=== PATIENT | male | born 1965 | race African-American/Black ===

== ENCOUNTER 2017-02-04 11:05 | Emergency (ER) | payer OTHER ==
[2017-02-04 11:13] VITALS: BP 149/90; PULSE 94; TEMP 98.4; BMI 26.4
--- NOTE | 2017-02-04 11:48 | PDOC ---
History of Present Illness - General Chief Complaint: Hematuria Stated Complaint: BLOOD IN URINE Time Seen by Provider: 02/04/17 11:25 History Source: Patient - History of Present Illness Timing/Duration: reports: constant Past History - Past Medical History Allergies/Adverse Reactions: Allergies Allergy/AdvReac Type Severity Reaction Status Date / Time No Known Allergies Allergy Verified 02/04/17 11:12 Home Medications: Ambulatory Orders NK [No Known Home Medication] 07/30/14 Other medical history: denies - Surgical History Appendectomy: Yes - Suicide/Smoking/Psychosocial Hx Smoking History: Never smoked Have you smoked in the past 12 months: No Information on smoking cessation initiated: No Hx Alcohol Use: No Drug/Substance Use Hx: Yes (cocaine) Substance Use Type: Cocaine Review of Systems - Review of Systems Constitutional: No: Chills, Fever ABD/GI: No: Nausea, Vomiting, Abdominal cramping : Yes: Hematuria. No: Dysuria, Frequency, Flank Pain, Testicular Mass, Testicular Swelling, Testicular Pain Neurological: No: Dizziness *Physical Exam - Vital Signs Last Vital Signs Temp Pulse Resp BP Pulse Ox 98.4 F 94 H 20 149/90 98 02/04/17 11:07 02/04/17 11:07 02/04/17 11:07 02/04/17 11:07 02/04/17 11:07 - Physical Exam General Appearance: Yes: Appropriately Dressed. No: Apparent Distress HEENT: positive: Normal Voice Neck: positive: Supple Respiratory/Chest: negative: Respiratory Distress Gastrointestinal/Abdominal: positive: Soft. negative: Tender Musculoskeletal: negative: CVA Tenderness Integumentary: positive: Dry, Warm Neurologic: positive: Fully Oriented, Alert, Normal Mood/Affect ED Treatment Course - LABORATORY CBC & Chemistry Diagram: 02/04/17 11:55 02/04/17 11:55 Medical Decision Making - Medical Decision Making 02/04/17 11:43 51 yo M, denies any pmhx, p/w gross hematuria since yesterday. Denies dysuria, penile discharge, testicular pain/swelling, abd/flank pain, n/v/f/c. States he started using an over the counter "testosterone booster" for the first time 1 week ago. Saw his PMD for routine visit 3 days ago and told "my prostate numbers are up" and now scheduled to see in 1 week. No unexplainable weight loss or sig fmhx. Non-smoker See exam Painless hematuria x 2 days Started new OTC neugenix testosterone booster 1 week ago w/ new elevation in PSA level in PMD's office 3 days ago No dysuria Non-smoker Not on blood thinners No h/o stone Stable w/ unremarkable exam in ED R/o uti, less likely stone, possible SE of new OTC testosterone booster -If ua/labs unremarkable, will dc w/ f/u for further eval 02/04/17 12:34 Labs unremarkable. +bld on ua, no nit w/ wbc of 10. No LE reported. Ucx sent. Will not start on antibiotics as not convinced this is an infection. Strongly suspect that this could be a side effect of [id number] testosterone booster that patient recently started on his own. Has follow-up with urology in several days for further evaluation. Patient currently stable for discharge 02/04/17 12:36 *DC/Admit/Observation/Transfer Diagnosis at time of Disposition: Gross hematuria - Discharge Dispostion Condition at time of disposition: Good - Patient Instructions Printed Discharge Instructions: DI for Hematuria Additional Instructions: Your labs were normal and there were no signs of infection in your urine. The cause of your symptoms could possibly be due to new testosterone booster you are taking. It is advisable that you stop meds as is not FDA approved. Please follow-up with your urologist for further evaluation to rule out any other etiologies. Return to ER for worsening of symptoms
[2017-02-04 12:06] LABS: BASOPHIL 1.5 % (0-2.0); MCH 29.9 pg (25.7-33.7); MCHC 33.4 g/dl (32.0-35.9); MEAN CELL VOLUME 89.4 fl (80-96); MEAN PLT VOLUME 8.2 fl (7.5-11.1); NEUTROPHILS 49.3 % (42.8-82.8); PLATELET COUNT 232 K/MM3 (134-434); RDW 15.1 % (11.9-15.9); WHITE BLOOD COUNT 6.5 K/mm3 (4.0-10.0)
[2017-02-04 12:12] LABS: PH,URINE 5.5 (5.0-8.0); URINE APPEARANCE CLOUDY; URINE BILIRUBIN NEGATIVE (NEGATIVE); URINE BLOOD 3+ (NEGATIVE); URINE COLOR RED; URINE GLUCOSE (UA) NEGATIVE (NEGATIVE); URINE KETONE NEGATIVE (NEGATIVE); URINE LEUK ESTERASE NEGATIVE (NEGATIVE); URINE NITRITE NEGATIVE (NEGATIVE); URINE UROBILINOGEN 0.2 mg/dL (0.2-1.0)
[2017-02-04 12:14] LABS: URINE PROTEIN 1+ (NEGATIVE)
[2017-02-04 12:27] LABS: URINE RBC 5968 /hpf (0-3); URINE WBC 10 /hpf (3-5)
[2017-02-04 12:31] LABS: ALBUMIN 4.1 g/dl (3.4-5.0); ALK PHOS 85 U/L (45-117); ANION GAP 7 (8-16); BILIRUBIN,TOTAL 0.7 mg/dL (0.2-1.0); CALCIUM 9.5 mg/dL (8.5-10.1); CO2 28 mmol/L (21-32); CREATININE 1.3 mg/dL (0.7-1.3); GLUCOSE,RANDOM 90 mg/dL (74-106); SGOT/AST 23 U/L (15-37); SGPT/ALT 27 U/L (12-78); TOT PROT 7.8 g/dl (6.4-8.2)
== END 2017-02-04 12:48 | disposition home or self-care (01) ==
LOC: JER 11:05
DX: R31.0 Gross hematuria (principal)
CPT/HCPCS: 36415; 80053; 81003; 81015; 85025; 87086; 99282-25

== ENCOUNTER 2019-04-21 16:22 | Emergency (ER) | payer OTHER ==
[2019-04-21 16:33] VITALS: TEMP 97.3; BMI 29.9
--- NOTE | 2019-04-21 17:08 | PDOC ---
History of Present Illness - General Chief Complaint: Urinary Problem Stated Complaint: PAIN Time Seen by Provider: 04/21/19 17:08 History Source: Patient Exam Limitations: No Limitations - History of Present Illness Initial Comments: 53 year old male with no PMH presented to ED for urinary retention x3 days associated with suprapubic pressure today. Pt reported he has never had urinary retention before, and had a normal prostate examination x1 year ago. He denied fever, chills, nausea, vomiting, body aches, chest pain, shortness of breath. Pt had already had a garcia placed by RN here at [facility] ED by time I evaluated him and he reported complete resolution of his suprapubic pressure. ROS General: denied fever, chills, generalized weakness. HEENT: denied sore throat, rhinorrhea, ear pain. Cardiovascular: denied chest pain, palpitations, syncope, diaphoresis. Respiratory: denied shortness of breath, cough, sputum production, hemoptysis. Gastrointestinal: admitted to abdominal pain, abdominal distension. denied nausea, vomiting, diarrhea, constipation, blood in stool. Genitourinary: admitted to urinary retention. denied dysuria, increased urinary frequency, hematuria, urinary incontinence, flank pain. Back: denied back pain. Musculoskeletal: denied joint pain, muscle pain, joint swelling. Neurological: denied headache, dizziness, numbness, tingling, weakness. Integumentary: denied rash, laceration, abrasion. Hematologic/Lymphatic: denied bruising or bleeding. PE Constitutional: Well-nourished, Well-developed, appearing stated age. HEENT: head is normocephalic, atraumatic. EOMI. PERRLA. Neck: supple. Full ROM. Cardiovascular: regular heart rhythm. no murmurs. no pericardial friction rub. Respiratory: clear to auscultation bilaterally. no crackles, rhonchi or wheezing. no stridor. Gastrointestinal: soft, nontender. mild distension. normal bowel sounds. no rebound, guarding, masses. Garcia noted, draining urine. Extremities: peripheral pulses intact. no lower extremity edema. Neurological: CN 2-12 grossly intact. moves all four extremities. Psych: awake, alert, oriented x3. follows commands. answers questions appropriately. Past History - Past Medical History Allergies/Adverse Reactions: Allergies Allergy/AdvReac Type Severity Reaction Status Date / Time No Known Allergies Allergy Verified 04/21/19 16:32 Home Medications: Ambulatory Orders NK [No Known Home Medication] 07/30/14 *Physical Exam - Vital Signs Last Vital Signs Temp Pulse Resp BP Pulse Ox 97.3 F L 91 H 16 125/84 100 04/21/19 16:29 04/21/19 16:29 04/21/19 16:29 04/21/19 16:29 04/21/19 16:29 ED Treatment Course - LABORATORY CBC & Chemistry Diagram: 04/21/19 17:18 04/21/19 17:18 Medical Decision Making - Medical Decision Making 53 year old male with above PMH presented to ED for urinary retention x3 days, associated with suprapubic pressure today. Pt reported his only daily medication is Zoloft. Initial Vital Signs Temp Pulse Resp BP Pulse Ox 97.3 F L 91 H 16 125/84 100 04/21/19 16:29 04/21/19 16:29 04/21/19 16:29 04/21/19 16:29 04/21/19 16:29 Afebrile. No tachycardia. No tachypnea. No hypotension. No hypoxia on room air. Labs ordered: CBC, CMP, Mag, Phos, UA/UC, coags Imaging ordered: none Medications ordered: normal saline bolus 1000 cc once 04/21/19 17:48 CBC WBC 11.7 K/mm3 (4.0-10.0) H 04/21/19 17:18 RBC 5.22 M/mm3 (4.00-5.60) 04/21/19 17:18 Hgb 15.6 GM/dL (11.7-16.9) 04/21/19 17:18 Hct 47.5 % (35.4-49) 04/21/19 17:18 MCV 91.0 fl (80-96) 04/21/19 17:18 MCH 29.9 pg (25.7-33.7) 04/21/19 17:18 MCHC 32.9 g/dl (32.0-35.9) 04/21/19 17:18 RDW 15.3 % (11.9-15.9) 04/21/19 17:18 Plt Count 256 K/MM3 (134-434) 04/21/19 17:18 MPV 8.8 fl (7.5-11.1) 04/21/19 17:18 Absolute Neuts (auto) 8.2 K/mm3 (1.5-8.0) H 04/21/19 17:18 Neutrophils % 70.8 % (42.8-82.8) D 04/21/19 17:18 Lymphocytes % 19.3 % (8-40) D 04/21/19 17:18 Monocytes % 8.7 % (3.8-10.2) 04/21/19 17:18 Eosinophils % 0.5 % (0-4.5) 04/21/19 17:18 Basophils % 0.7 % (0-2.0) 04/21/19 17:18 Nucleated RBC % 0 % (0-0) 04/21/19 17:18 Urine Test Results Urine Color Yellow 04/21/19 17:30 Urine Appearance Clear 04/21/19 17:30 Urine pH 5.0 (5.0-8.0) 04/21/19 17:30 Ur Specific [place] 1.024 (1.010-1.035) 04/21/19 17:30 Urine Protein 2+ (NEGATIVE) H 04/21/19 17:30 Urine Glucose (UA) Negative (NEGATIVE) 04/21/19 17:30 Urine Ketones Negative (NEGATIVE) 04/21/19 17:30 Urine Blood Negative (NEGATIVE) 04/21/19 17:30 Urine Nitrite Negative (NEGATIVE) 04/21/19 17:30 Urine Bilirubin Negative (NEGATIVE) 04/21/19 17:30 Ur Leukocyte Esterase Negative (NEGATIVE) 04/21/19 17:30 Leukocytosis with left shift. No anemia. Negative for UTI. Proteinuria. 04/21/19 18:26 CMP Sodium 141 mmol/L (136-145) 04/21/19 17:18 Potassium 4.2 mmol/L (3.5-5.1) 04/21/19 17:18 Chloride 105 mmol/L (98-107) 04/21/19 17:18 Carbon Dioxide 27 mmol/L (21-32) 04/21/19 17:18 Anion Gap 9 MMOL/L (8-16) 04/21/19 17:18 BUN 18.9 mg/dL (7-18) H 04/21/19 17:18 Creatinine 1.8 mg/dL (0.55-1.3) H 04/21/19 17:18 Est GFR (CKD-EPI)AfAm 48.04 04/21/19 17:18 Est GFR (CKD-EPI)NonAf 41.45 04/21/19 17:18 Random Glucose 166 mg/dL (74-106) H 04/21/19 17:18 Calcium 10.0 mg/dL (8.5-10.1) 04/21/19 17:18 Phosphorus 3.4 mg/dL (2.5-4.9) 04/21/19 17:18 Total Bilirubin 1.2 mg/dL (0.2-1) H 04/21/19 17:18 AST 40 U/L (15-37) H 04/21/19 17:18 ALT 38 U/L (13-61) 04/21/19 17:18 Alkaline Phosphatase 70 U/L (45-117) 04/21/19 17:18 Total Protein 8.3 g/dl (6.4-8.2) H 04/21/19 17:18 Albumin 4.4 g/dl (3.4-5.0) 04/21/19 17:18 No electrolyte abnormalities. [place], last Cr 1.3 IV fluid running, will repeat kidney functioning. 04/21/19 18:29 US report: Comments: Eugenio Bales MD wrote on Apr 21, 2019 at 06:12 PM: Referring Physician: KASIE WHITE Patient Name: VIANNEY PATTERSON THIS IS A PRELIMINARY REPORT FROM [facility] DATE OF SERVICE: 2019-04-21 17:41:01 IMAGES: 32 EXAM: US RENAL COMPLETE HISTORY: Hydronephrosis . TECHNIQUE: Standard grayscale images were acquired with additional Doppler interrogation when appropriate. COMPARISON: None available. FINDINGS: The right kidney measures 10.6 cm in length without evidence of hydronephrosis. The left kidney measures 9.5 cm in length without hydronephrosis. There are no focal renal lesions. Per piano technician note, there are tiny nonshadowing echogenic foci in both kidneys. THIS DOCUMENT HAS BEEN ELECTRONICALLY SIGNED Eugenio Bales MD 04/21/2019 18:11 EST M.D. Please call [facility] Director Of [facility] [phone] with questions. Eugenio Bales MD CT cervical spine report: Referring Physician: KASIE WHITE Comments: Levi Lerma MD wrote on Apr 21, 2019 at 07:09 PM: Referring Physician: KASIE WHITE Patient Name: JAN NORIEGA THIS IS A PRELIMINARY REPORT FROM [facility] DATE OF SERVICE: 2019-04-21 17:11:54 IMAGES: [id number] EXAM:CT Cervical Spine without IV contrast HISTORY: 86-year-old female, fall COMPARISON: No comparison exam is available. TECHNIQUE: Axial images obtained through the cervical spine. Sagittal and coronal reformatting was performed. Radiation Dose Reduction: This CT exam was performed using one or more of the following dose reduction techniques: automated exposure control, adjustment of the mA and/or kV according to patient size, use of iterative reconstruction technique. Radiation Dose: Based on a 32 cm phantom, the estimated radiation dose CTDIvol mGy for each series in this exam is 5.1. The estimated cumulative dose (DLP mGy-cm) is 118.2. FINDINGS: Cervical Spine: Skull base is intact. No vertebral body fracture seen. Moderate degenerative changes. Alignment:No subluxation or dislocation seen. Prevertebral soft tissues: Normal contour and thickness. Lung apices: Visualized portions clear. Thyroid: Unremarkable. Vasculature: Limited evaluation without IV contrast. Soft tissues: Unremarkable. Lymphadenopathy: None. IMPRESSION: Referring Physician: KASIE WHITE No acute fracture or subluxation in the cervical spine. One or more of the following dose reduction techniques were used: automated exposure control, adjustment of the mA and/or kV according to patient size, use of iterative reconstructive technique. THIS DOCUMENT HAS BEEN ELECTRONICALLY SIGNED Levi Lerma MD 04/21/2019 19:07 [place] Please call Imaging Director Of Physical Security [phone] with questions. Levi Lerma MD Clinicians - Please contact Imaging Director Of [facility] with further questions at [phone] Patients - Please contact your Ordering Provider with questions. 04/21/19 19:18 Pt signed out to Dr. Wild. Discharge - Discharge Information Problems reviewed: Yes Clinical Impression/Diagnosis: Urinary retention - Follow up/Referral Referrals: Paula Bernabe [Primary Care Provider] - - Patient Discharge Instructions - Post Discharge Activity Work/Back to School Note: Back to Work
--- NOTE | 2019-04-21 17:19 | PDOC ---
Attending Attestation - Resident Resident Name: MaribethHaydee hernández - HPI HPI: 04/21/19 18:44 Pt presents to the ED complaining of urinary retention for three days. Patient reports that he has been able to void small amounts of urine, but that his bladder has been full for the last three days. Denies nausea, vomiting, fever or flank pain. - Physicial Exam PE: 04/21/19 18:45 Agree with resident exam. Patient is alert and oriented and in no acute distress. Abdomen is soft, non tender, non distended without guarding or rebound. - Medical Decision Making 04/21/19 18:45 Agree with resident exam. Patient presents to the ED with three days of urinary retention. Sampson placed in the ED with > 1100 cc urine. Labs show elevation in cr to 1.8. Likely secondary to obstruction. Will give IV hydration and repeat. Will likely discharge home with urology follow up.
[2019-04-21] MEDS ORDERED: SODIUM CHLORIDE 1,000 ML IV STA (17:22)
[2019-04-21 17:29] LABS: BASO % 0.7 % (0-2.0); EOS % 0.5 % (0-4.5); HEMATOCRIT 47.5 % (35.4-49); HEMOGLOBIN 15.6 GM/dL (11.7-16.9); LYMPH % 19.3 % (8-40); MCH 29.9 pg (25.7-33.7); MCHC 32.9 g/dl (32.0-35.9); MEAN PLT VOLUME 8.8 fl (7.5-11.1); MONO % 8.7 % (3.8-10.2); NEUT % 70.8 % (42.8-82.8); PLATELET COUNT 256 K/MM3 (134-434); RBC 5.22 M/mm3 (4.00-5.60); RDW 15.3 % (11.9-15.9); WHITE BLOOD COUNT 11.7 K/mm3 (4.0-10.0)
[2019-04-21 17:38] LABS: INR 1.22 (0.83-1.09); PROTHROMBIN TIME (PATIENT) 14.4 SEC (9.7-13.0)
[2019-04-21 17:41] LABS: EPI CELLS 0.4 /HPF (0-5/HPF); HYALINE CASTS 6 /lpf (0-8); URINE APPEARANCE CLEAR; URINE BACTERIA 1.5 /hpf (NEGATIVE); URINE BILIRUBIN NEGATIVE (NEGATIVE); URINE COLOR YELLOW; URINE GLUCOSE (UA) NEGATIVE (NEGATIVE); URINE KETONE NEGATIVE (NEGATIVE); URINE LEUK ESTERASE NEGATIVE (NEGATIVE); URINE NITRITE NEGATIVE (NEGATIVE); URINE PROTEIN 2+ (NEGATIVE); URINE RBC 5 /hpf (0-4); URINE WBC 0 /hpf (0-5)
[2019-04-21 17:41] LABS: ACTIVATED PTT 40.9 SECONDS (25.2-36.5)
[2019-04-21 18:01] LABS: ALBUMIN 4.4 g/dl (3.4-5.0); BILIRUBIN,TOTAL 1.2 mg/dL (0.2-1); BLOOD UREA NITROGEN 18.9 mg/dL (7-18); CREATININE 1.8 mg/dL (0.55-1.3); POTASSIUM 4.2 mmol/L (3.5-5.1); TOT PROT 8.3 g/dl (6.4-8.2)
--- NOTE | 2019-04-21 19:28 | PDOC ---
*Physical Exam - Vital Signs Last Vital Signs Temp Pulse Resp BP Pulse Ox 97.3 F L 91 H 16 125/84 100 04/21/19 16:29 04/21/19 16:29 04/21/19 16:29 04/21/19 16:29 04/21/19 16:29 <Darian Wild - Last Filed: 04/21/19 19:28> - Vital Signs Last Vital Signs Temp Pulse Resp BP Pulse Ox 97.3 F L 91 H 16 125/84 100 04/21/19 16:29 04/21/19 16:29 04/21/19 16:29 04/21/19 16:29 04/21/19 16:29 <Carmen Carrero - Last Filed: 04/21/19 19:55> ED Treatment Course - LABORATORY CBC & Chemistry Diagram: 04/21/19 17:18 04/21/19 17:18 - ADDITIONAL ORDERS Additional order review: Laboratory Results 04/21/19 04/21/19 04/21/19 17:30 17:18 17:18 PT with INR Cancelled INR Cancelled PTT (Actin FS) Sodium Potassium Chloride Carbon Dioxide Anion Gap BUN Creatinine Est GFR (CKD-EPI)AfAm Est GFR (CKD-EPI)NonAf Random Glucose Calcium Phosphorus 3.4 Total Bilirubin AST ALT Alkaline Phosphatase Total Protein Albumin Urine Color Yellow Urine Appearance Clear Urine pH 5.0 Ur Specific [place] 1.024 Urine Protein 2+ H Urine Glucose (UA) Negative Urine Ketones Negative Urine Blood Negative Urine Nitrite Negative Urine Bilirubin Negative Urine Urobilinogen 1.0 Ur Leukocyte Esterase Negative Urine WBC (Auto) 0 Urine RBC (Auto) 5 Urine Casts (Auto) 6 U Epithel Cells (Auto) 0.4 Urine Bacteria (Auto) 1.5 04/21/19 04/21/19 17:18 17:18 PT with INR 14.40 H INR 1.22 H PTT (Actin FS) 40.9 H Sodium 141 Potassium 4.2 Chloride 105 Carbon Dioxide 27 Anion Gap 9 BUN 18.9 H Creatinine 1.8 H Est GFR (CKD-EPI)AfAm 48.04 Est GFR (CKD-EPI)NonAf 41.45 Random Glucose 166 H Calcium 10.0 Phosphorus Total Bilirubin 1.2 H AST 40 H ALT 38 Alkaline Phosphatase 70 Total Protein 8.3 H Albumin 4.4 Urine Color Urine Appearance Urine pH Ur Specific [place] Urine Protein Urine Glucose (UA) Urine Ketones Urine Blood Urine Nitrite Urine Bilirubin Urine Urobilinogen Ur Leukocyte Esterase Urine WBC (Auto) Urine RBC (Auto) Urine Casts (Auto) U Epithel Cells (Auto) Urine Bacteria (Auto) 04/21/19 17:18 RBC 5.22 MCV 91.0 MCHC 32.9 RDW 15.3 MPV 8.8 Neutrophils % 70.8 D Lymphocytes % 19.3 D Monocytes % 8.7 Eosinophils % 0.5 Basophils % 0.7 - Medications Given in the ED: ED Medications Discontinued Medications Generic Name Dose Route Start Last Admin Trade Name Vineetq PRN Reason Stop Dose Admin Sodium Chloride 1,000 mls @ 1,000 mls/hr 04/21/19 17:22 04/21/19 17:50 Normal Saline - IV 04/21/19 18:21 1,000 mls/hr ASDIR STA Administration <Darian Wild - Last Filed: 04/21/19 19:28> - LABORATORY CBC & Chemistry Diagram: 04/21/19 17:18 04/21/19 17:18 - ADDITIONAL ORDERS Additional order review: Laboratory Results 04/21/19 04/21/19 04/21/19 17:30 17:18 17:18 PT with INR Cancelled INR Cancelled PTT (Actin FS) Sodium Potassium Chloride Carbon Dioxide Anion Gap BUN Creatinine Est GFR (CKD-EPI)AfAm Est GFR (CKD-EPI)NonAf Random Glucose Calcium Phosphorus 3.4 Total Bilirubin AST ALT Alkaline Phosphatase Total Protein Albumin Urine Color Yellow Urine Appearance Clear Urine pH 5.0 Ur Specific [place] 1.024 Urine Protein 2+ H Urine Glucose (UA) Negative Urine Ketones Negative Urine Blood Negative Urine Nitrite Negative Urine Bilirubin Negative Urine Urobilinogen 1.0 Ur Leukocyte Esterase Negative Urine WBC (Auto) 0 Urine RBC (Auto) 5 Urine Casts (Auto) 6 U Epithel Cells (Auto) 0.4 Urine Bacteria (Auto) 1.5 04/21/19 04/21/19 17:18 17:18 PT with INR 14.40 H INR 1.22 H PTT (Actin FS) 40.9 H Sodium 141 Potassium 4.2 Chloride 105 Carbon Dioxide 27 Anion Gap 9 BUN 18.9 H Creatinine 1.8 H Est GFR (CKD-EPI)AfAm 48.04 Est GFR (CKD-EPI)NonAf 41.45 Random Glucose 166 H Calcium 10.0 Phosphorus Total Bilirubin 1.2 H AST 40 H ALT 38 Alkaline Phosphatase 70 Total Protein 8.3 H Albumin 4.4 Urine Color Urine Appearance Urine pH Ur Specific [place] Urine Protein Urine Glucose (UA) Urine Ketones Urine Blood Urine Nitrite Urine Bilirubin Urine Urobilinogen Ur Leukocyte Esterase Urine WBC (Auto) Urine RBC (Auto) Urine Casts (Auto) U Epithel Cells (Auto) Urine Bacteria (Auto) 04/21/19 17:18 RBC 5.22 MCV 91.0 MCHC 32.9 RDW 15.3 MPV 8.8 Neutrophils % 70.8 D Lymphocytes % 19.3 D Monocytes % 8.7 Eosinophils % 0.5 Basophils % 0.7 - Medications Given in the ED: ED Medications Discontinued Medications Generic Name Dose Route Start Last Admin Trade Name Freq PRN Reason Stop Dose Admin Sodium Chloride 1,000 mls @ 1,000 mls/hr 04/21/19 17:22 04/21/19 17:50 Normal Saline - IV 04/21/19 18:21 1,000 mls/hr ASDIR STA Administration <Carmen Carrero - Last Filed: 04/21/19 19:55> Discharge <Darian Wild - Last Filed: 04/21/19 19:28> - Discharge Information Problems reviewed: Yes <Carmen Carrero - Last Filed: 04/21/19 19:55> - Discharge Information Clinical Impression/Diagnosis: Urinary retention Condition: Improved Disposition: HOME - Follow up/Referral Referrals: Paula Bernaeb [Primary Care Provider] - Richie Santiago MD [Staff Physician] - - Patient Discharge Instructions Patient Printed Discharge Instructions: DI for Urinary Retention in Men - Post Discharge Activity Work/Back to School Note: Back to Work
[2019-04-21 20:10] VITALS: BP 127/74; PULSE 88
[2019-04-21 20:34] LABS: ALBUMIN 3.8 g/dl (3.4-5.0); BLOOD UREA NITROGEN 17.3 mg/dL (7-18); CREATININE 1.5 mg/dL (0.55-1.3); POTASSIUM 3.9 mmol/L (3.5-5.1)
[2019-04-21 20:52] LABS: MAGNESIUM 2.1 mg/dL (1.8-2.4)
== END 2019-04-21 20:33 | disposition home or self-care (01) ==
LOC: JER 16:22
PROC: 0T9B70Z Drainage of Bladder with Drainage Device, Via Natural or Artificial Opening (ICD-10-PCS; principal; 2019-04-21)
PROC: 3E0337Z Introduction of Electrolytic and Water Balance Substance into Peripheral Vein, Percutaneous Approach (ICD-10-PCS; 2019-04-21)
DX: R33.9 Retention of urine, unspecified (principal)
CPT/HCPCS: 36415; 51702; 76775-TC; 80053; 81003; 83735; 84100; 85025; 85610; 85730; 87086; 96360; 99283-25; J7030